=== PATIENT | female | born 1965 | race Caucasian/White ===

== ENCOUNTER 2019-11-04 09:11 | Outpatient (CLI) | payer MEDICARE, MEDICAID, SELFPAY ==
--- NOTE | ~2019-11-04 | MM_ITS ---
EXAMINATION: MM screening arpan BI w brandyn HISTORY: Screening TECHNIQUE: Craniocaudal and mediolateral oblique 3-D tomosynthesis images were obtained and synthetic 2-D images were generated. CAD analysis was submitted and interpreted. COMPARISON: Comparison to multiple prior studies sequentially, with oldest reviewed study dated 07/2015. BREAST PARENCHYMAL COMPOSITION: There are scattered areas of fibroglandular density. FINDINGS: There is no evidence of suspicious mass, calcification, or architectural distortion to sugg est malignancy in either breast. There has been no suspicious interval change. IMPRESSION: 1. No mammographic evidence of malignancy. 2. Recommend routine screening mammography in one year. BI-RADS Category 1: Negative Reviewed, dictated and finalized at location A.
== END 2019-11-04 09:12 | disposition home or self-care (01) ==
PROVIDERS: PCP Emergency Medicine; Visit Provider Emergency Medicine
DX: Z12.31 Encounter for screening mammogram for malignant neoplasm of breast (principal)
CPT/HCPCS: 77063; 77067

== ENCOUNTER 2019-12-03 09:04 | Outpatient (CLI) | payer MEDICARE, MEDICAID, SELFPAY ==
--- NOTE | ~2019-12-03 | CT_ITS ---
EXAMINATION: CT lung screening DATE: 12/03/2019 09:48 INDICATION: Personal history of tobacco dependence, prior smoker with 30 pack year history TECHNIQUE: Computed tomography (CT) of the chest was performed without intravenous contrast. The dose -length product (DLP) was 471.62 mGy-cm. Automated exposure control and iterative reconstruction tech [employer] were employed. COMPARISON: 04/05/2017 FINDINGS: There are multiple 1-2 mm nodules throughout the lungs with an upper lobe predominance. The re is a 3 mm nodule of the right lower lobe on image 85. The lungs are free of acute opacities. There is no pleural effusion or pneumothorax. No pathologically enlarged thoracic lymph nodes are identifi ed. The heart size is normal. Surgical changes in the stomach likely reflect gastric bypass. There is mild thoracic spondylosis. IMPRESSION: 1. Lung-RADS category 2: Benign appearance or behavior. Continue annual screening with noncontrast lo w-dose chest CT in 12 months. Reviewed, dictated and finalized at location B. IMPRESSION: 1. Lung-RADS category 2: Benign appearance or behavior. Continue annual screeni ng with noncontrast low-dose chest CT in 12 months.
[2019-12-03 10:56] LABS: Hematocrit 43.8 % (37.0-47.0); Hemoglobin 13.6 g/dL (12.0-15.0); Mean Corpuscular HGB Conc 31.1 g/dl (32-36); Mean Corpuscular Hemoglobin 27.9 pg (26-34); Mean Corpuscular Volume 89.8 fl (80-100); Mean Platelet Volume 11.7 fl (7.4-10.4); Platelet Count Result 309 k/mm3 (150-375); Red Blood Count 4.88 M/mm3 (4.2-5.4); White Blood Count 9.1 K/mm3 (4.5-10.0)
[2019-12-03 11:07] LABS: Add Urine Microscopic? YES; Appearance Urine Clear (Clear); Bacteria Urine 2+ /hpf; Bilirubin Urine Negative (Negative); Blood Urine Negative (Negative); Color Urine Yellow (Yellow); Glucose Urine UA Negative (Negative); Ketones Urine Negative (Negative); Leukocyte Esterase Ur Negative LEU/UL (NEGATIVE); Mucus Urine Rare /lpf; Nitrate Urine Positive (Negative); Protein Urine Negative (Negative); RBC Urine 0-2 /hpf (0-2); Specific Grav Ur 1.018 (1.001-1.035); Squamous Epithelial Cell Urine Many /hpf (Few); Urobilinogen Urine Negative mg/dL (<2.0); WBC Urine 0-3 /hpf (0-3)
[2019-12-03 11:10] LABS: Alanine Aminotransferase 16 U/L (4-35); Albumin Level 4.1 g/dL (3.5-5.1); Alkaline Phosphatase 78 U/L (38-126); Anion Gap 5 mmol/L (8-16); Aspartate Amino Transferase 25 U/L (14-36); Bilirubin,Total 0.8 mg/dL (0.2-1.3); Blood Urea Nitrogen 10 mg/dL (7-17); Carbon Dioxide 31 mmol/L (22-30); Chloride 103 mmol/L (98-107); Cholesterol 145 mg/dL (0-200); Estimated Glomerular Filt Rate > 60; Glucose 110 mg/dL (65-105); HDL Direct 30 mg/dL; Potassium 3.9 mmol/L (3.4-5.0); Sodium 139 mmol/L (137-145); Triglycerides 245 mg/dL (<150)
[2019-12-03 11:21] LABS: LDL Cholesterol Direct 69 mg/dL
[2019-12-03 11:27] LABS: Hemoglobin A1C 5.3 % (<5.7)
[2019-12-03 11:48] LABS: Free T4 Free Thyroxine 0.99 ng/mL (0.78-2.19)
[2019-12-03 12:00] LABS: Microalbumin Urine Random 29.7 mg/L (0-16.7)
[2019-12-03 12:10] LABS: Creatinine Urine 177.4 mg/dL; MALB Creatinine Ratio 16.7 mg/g (0-30)
== END 2019-12-03 09:05 | disposition home or self-care (01) ==
PROVIDERS: PCP Emergency Medicine; Visit Provider Nurse Practitioner Family
DX: Z12.2 Encounter for screening for malignant neoplasm of respiratory organs (principal); Z87.891 Personal history of nicotine dependence; M10.9 Gout, unspecified; E11.9 Type 2 diabetes mellitus without complications; I10 Essential (primary) hypertension
CPT/HCPCS: 36415; 80053; 80061; 81001; 82043; 83036; 84439; 84443; 85027; G0297

== ENCOUNTER 2020-05-02 10:05 | Outpatient (CLI) | payer MEDICARE, MEDICAID, SELFPAY ==
--- NOTE | ~2020-05-02 | XR_ITS ---
XR knee RT min 4V 05/02/2020 10:36 Indication: Right knee pain Procedure: 4 views right knee Comparison: 05/06/2015 Findings: There is severe osteoarthritis of the right knee. There is a moderate size joint effusion. No acute fracture or traumatic malalignment. No foreign bodies. Impression: 1: Severe osteoarthritis of the right knee. 2: Moderate joint effusion. Reviewed, dictated and finalized at location B. AN Impression: 1: Severe osteoarthritis of the right knee. 2: Moderate joint effusion.
--- NOTE | ~2020-05-02 | XR_ITS ---
EXAMINATION: XR hand LT min 3V INDICATION: Left hand pain TECHNIQUE: Three views of the left hand are obtained. COMPARISON: 12/19/2018 FINDINGS: Bone alignment is normal. There is no fracture. The soft tissues are unremarkable. There is mild osteoarthritis of the wrist. IMPRESSION: 1. No acute osseous abnormality. Reviewed, dictated and finalized at location A. 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
--- NOTE | ~2020-05-02 | XR_ITS ---
EXAMINATION: XR shoulder LT min 2V DATE: 05/02/2020 10:36 INDICATION: Left shoulder pain. TECHNIQUE: 4 views of left shoulder were obtained. COMPARISON: None. FINDINGS: Bone alignment is normal. No fracture. There is severe osteoarthritis of acromioclavicular joint and mild osteoarthritis of glenohumeral joint. IMPRESSION: 1. Polyarticular osteoarthritis. Reviewed, dictated and finalized at location A. 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
[2020-05-02 11:56] LABS: Anion Gap 5 mmol/L (8-16); Blood Urea Nitrogen 14 mg/dL (7-17); Calcium 9.2 mg/dL (8.4-10.2); Carbon Dioxide 33 mmol/L (22-30); Chloride 104 mmol/L (98-107); Cholesterol 142 mg/dL (0-200); Estimated Glomerular Filt Rate > 60; Glucose 99 mg/dL (65-105); HDL Direct 42 mg/dL; Potassium 4.2 mmol/L (3.4-5.0); Sodium 142 mmol/L (137-145); Triglycerides 155 mg/dL (<150)
[2020-05-02 12:07] LABS: LDL Cholesterol Direct 62 mg/dL
[2020-05-02 12:40] LABS: Free T4 Free Thyroxine 1.06 ng/mL (0.78-2.19)
== END 2020-05-02 10:06 | disposition home or self-care (01) ==
PROVIDERS: PCP Emergency Medicine; Visit Provider Emergency Medicine
DX: M25.542 Pain in joints of left hand (principal); M19.012 Primary osteoarthritis, left shoulder; M17.11 Unilateral primary osteoarthritis, right knee; M25.461 Effusion, right knee; E78.5 Hyperlipidemia, unspecified; I10 Essential (primary) hypertension
CPT/HCPCS: 36415; 73030; 73130; 73564; 80048; 80061; 84439; 84443

== ENCOUNTER 2020-07-15 17:07 | Emergency (ER) | payer MEDICARE, MEDICAID, SELFPAY ==
--- NOTE | ~2020-07-15 | CT_ITS ---
EXAMINATION: CTA chest PE protocol DATE: 07/15/2020 22:42 CDT INDICATION: Sharp chest pain. Evaluate for pulmonary embolism. TECHNIQUE: Computed tomographic angiography (CTA) of the chest was performed with 100 mL Omnipaque-35 0 intravenous contrast. The dose-length product was 871.81 mGy-cm. Maximum intensity projection 3D-re constructions of the aorta and other arteries were constructed by the technologist on a separate work station. Automated exposure control and iterative reconstruction technique were employed. COMPARISON: CT dated 12/03/2019 FINDINGS: The study is technically adequate without evidence for pulmonary embolism. Mild chronic rig ht hilar lymphadenopathy, likely reactive. No significant pleural or pericardial effusion. Heart size normal. Small hiatal hernia. There are gastric bypass surgical changes. There are no suspicious pulm onary nodules or masses. No pneumothorax. No evidence for focal pneumonia. Small sclerotic lesion in the sternum, most likely benign bone island. IMPRESSION: 1. No acute cardiopulmonary disease. No evidence for pulmonary embolism. Reviewed, dictated and finalized at location A.
--- NOTE | ~2020-07-15 | XR_ITS ---
XR chest 2V 07/15/2020 19:55 Indication: Chest pain Procedure: 2 view chest Comparison: Comparison to multiple prior studies sequentially, with oldest reviewed study dated 09/17. Findings: Heart size normal. There is right basilar atelectasis. No focal pneumonia, edema, pleural e ffusion or pneumothorax. No acute osseous abnormality. Impression: 1: Right basilar atelectasis. Reviewed, dictated and finalized at location A. Impression: 1: Right basilar atelectasis.
[2020-07-15 18:39] VITALS: BP 187/81; PULSE 65; RESP 18; TEMP 36.4; O2SAT 98
--- NOTE | 2020-07-15 18:39 | ECG_ITS ---
Measurements Intervals [place] Rate: 69 P: 62 [place]: 176 QRS: 29 QRSD: 113 T: 15 QT: 381 QTc: 409 Interpretive Statements SINUS RHYTHM WITH SINUS ARRHYTHMIA INTRAVENTRICULAR CONDUCTION DELAY BASELINE ARTIFACT- I, II, III, AVR, AVL, AVF, V1, V3-V4 BORDERLINE ECG Electronically Signed On 07-15-2020 20:28:37 CDT by Aayush Patel D.O.
[2020-07-15 18:58] LABS: Basophils Absolute Auto 0.1 K/mm3 (0.0-0.1); Basophils Percent Auto 0.5 % (0.2-1.2); Eosinophils Absolute Auto 0.3 K/mm3 (0-0.3); Eosinophils Percent Auto 3.1 % (0-4.4); Hematocrit 42.1 % (37.0-47.0); Hemoglobin 13.5 g/dL (12.0-15.0); Immature Granulocyte Absolute 0.03 K/mm3 (0.00-0.031); Immature Granulocyte Percent A 0.3 % (0-0.5); Lymphocytes Absolute Auto 2.63 K/mm3 (0.9-3.2); Lymphocytes Percent Auto 27.4 % (18.3-44.2); Mean Corpuscular HGB Conc 32.1 g/dl (32-36); Mean Corpuscular Hemoglobin 28.4 pg (26-34); Mean Corpuscular Volume 88.6 fl (80-100); Mean Platelet Volume 10.8 fl (7.4-10.4); Monocytes Absolute Auto 0.7 K/mm3 (0.1-0.6); Monocytes Percent Auto 7.6 % (2.6-8.5); Neutrophils Absolute Auto 5.9 K/mm3 (1.3-6.7); Neutrophils Percent Auto 61.1 % (45.5-73.1); Platelet Count Result 289 k/mm3 (150-375); Red Blood Count 4.75 M/mm3 (4.2-5.4); Red Cell Distribution Width 14.5 % (11.5-14.5); White Blood Count 9.6 K/mm3 (4.5-10.0)
[2020-07-15 19:07] LABS: Anion Gap 4 mmol/L (8-16); Blood Urea Nitrogen 18 mg/dL (7-17); Calcium 8.6 mg/dL (8.4-10.2); Carbon Dioxide 32 mmol/L (22-30); Chloride 106 mmol/L (98-107); Estimated CRCL calculation 102 ml/min; Estimated Glomerular Filt Rate > 60; Glucose 106 mg/dL (65-105); Potassium 3.8 mmol/L (3.4-5.0); Sodium 142 mmol/L (137-145)
[2020-07-15 19:08] LABS: Prothrombin Time 13.6 Seconds (11.1-14.7)
[2020-07-15 19:09] LABS: Partial Thromboplastin Time 27.8 SECONDS (22.3-36.8)
[2020-07-15 19:19] LABS: Troponin I < 0.012 ng/mL (0.000-0.034)
[2020-07-15 19:49] VITALS: BP 194/111; PULSE 68; RESP 20; O2SAT 100
[2020-07-15] MEDS: ASPIRIN 81 MG CHEWABLE TABLET 324 MG PO (20:08)
[2020-07-15 20:41] LABS: Alanine Aminotransferase 14 U/L (4-35); Albumin Level 3.8 g/dL (3.5-5.1); Alkaline Phosphatase 91 U/L (38-126); Aspartate Amino Transferase 23 U/L (14-36); Bilirubin,Total 0.7 mg/dL (0.2-1.3); Lipase 84 U/L (23-300)
[2020-07-15] MEDS: MORPHINE SULFATE (*CRX) 4 MG/ML INJ IV PUSH (22:04)
[2020-07-15 22:05] VITALS: BP 139/71; PULSE 74; RESP 16; O2SAT 98
[2020-07-15 22:19] LABS: Troponin I < 0.012 ng/mL (0.000-0.034)
[2020-07-15] MEDS: diphenhydrAMINE HCl INJ 50 MG/ML VIAL IV PUSH (22:25)
[2020-07-15 23:28] VITALS: BP 176/96; PULSE 70; RESP 22; O2SAT 99
--- NOTE | 2020-07-15 23:31 | ED.GENADULT ---
HPI - General Adult General Chief complaint: Chest Pain Stated complaint: left side pain, [facility], home Time Seen by Provider: 07/15/20 20:06 History of Present Illness HPI narrative: Patient 55-year-old female who presents the emergency department with chief complaint of back and chest pain. The patient reports no injuries reports she has pain is worse with movement and worse with inspiration. Patient states that she has not fallen reports that she feels little short of breath whenever she takes a deep breath due to the pain. Patient states that she has not had a fever or chills Related Data Home Medications Medication Instructions Recorded Confirmed levothyroxine 175 mcg capsule 175 mcg PO DAILY 11/11/19 05/05/20 lisinopril 10 mg tablet 10 mg PO DAILY 11/11/19 05/05/20 metoprolol tartrate 25 mg tablet 25 mg PO BID tablet 11/11/19 05/05/20 calcium carbonate [Caltrate 600] 600 mg PO BID 07/15/20 07/15/20 multivit with min-folic acid tablet PO BID 07/15/20 [Adult Multivitamin Gummies] [id number] 1 tablet PO DAILY 07/15/20 07/15/20 [Adult Multi plus Aurora-3] Allergies Allergy/AdvReac Type Severity Reaction Status Date / Time ceftriaxone Allergy Unknown Hives Verified 07/15/20 20:10 erythromycin base Allergy Unknown Hives Verified 07/15/20 20:10 CEFTRIAXONE SODIUM Allergy Unknown FACIAL Uncoded 07/15/20 20:10 SWELLING/HIVES Review of Systems Review of Systems: Narrative: A 10 system review of systems was completed on the patient and is negative except for what is stated in the HPI. Nursing and ancillary documentation was reviewed. [facility] Surgical History Surgical History H/O gastric bypass Family History Family History Father Hypertension Family history of diabetes mellitus in first degree relative Diabetes mellitus Mother Hypertension Family history of hypothyroidism Social History Social History Smoking status: Former smoker Second hand tobacco smoke exposure: Yes Smoking end date: 03/25/11 Alcohol intake: never Exam Narrative: Exam Narrative: GENERAL: Well-appearing, well-nourished, and in no acute distress. HEAD: Normocephalic, atraumatic. EYES: PERRLA and EOMI. ENT: Nares clear, no rhinorrhea or epistaxis. Mucous membranes moist. NECK: Supple. Back: There is tenderness to palpation in the paraspinous muscles on the left in the mid thoracic region CHEST: Clear to auscultation. No respiratory distress. Chest wall is tender to palpation on the left side HEART: Regular rate and rhythm. No murmur heard. Normal peripheral pulses. ABDOMEN: Soft, nontender, nondistended, normal active bowel sounds. EXTREMITIES: Normal range of motion. No edema. SKIN: Warm, dry, no rash. NEURO: No focal deficits. Alert and oriented x3. PSYCH: Normal mood and affect. Course Vital Signs Vital signs: Vital Signs Temperature 36.4 C L 07/15/20 18:39 Pulse Rate 65 07/15/20 18:39 Respiratory Rate 18 07/15/20 18:39 Blood Pressure 187/81 H 07/15/20 18:39 Pulse Oximetry 98 07/15/20 18:39 Temperature 36.4 C L 07/15/20 18:39 Pulse Rate 70 07/15/20 23:28 Respiratory Rate 22 H 07/15/20 23:28 Blood Pressure 176/96 H 07/15/20 23:28 Pulse Oximetry 99 07/15/20 23:28 Medical Decision Making Vital Signs Vital Signs: Vital Signs Temperature 36.4 C L 07/15/20 18:39 Pulse Rate 65 07/15/20 18:39 Respiratory Rate 18 07/15/20 18:39 Blood Pressure 187/81 H 07/15/20 18:39 Pulse Oximetry 98 07/15/20 18:39 Temperature 36.4 C L 07/15/20 18:39 Pulse Rate 70 07/15/20 23:28 Respiratory Rate 22 H 07/15/20 23:28 Blood Pressure 176/96 H 07/15/20 23:28 Pulse Oximetry 99 07/15/20 23:28 Lab Data Result diagrams: 07/15/20 18:50 04
[2020-07-16 01:03] VITALS: BP 169/82; PULSE 85; RESP 24; O2SAT 99
== END 2020-07-16 01:15 | disposition home or self-care (01) ==
PROVIDERS: Emergency Medicine; Emergency Provider Emergency Medicine; PCP Emergency Medicine
DX: R07.89 Other chest pain (principal); Z98.84 Bariatric surgery status; Z87.891 Personal history of nicotine dependence; I45.9 Conduction disorder, unspecified
CPT/HCPCS: 36415; 71046; 71275; 80048; 80076; 83690; 84484; 85025; 85610; 85730; 93005; 96374; 96375; 99284; A9270; J1200; J2270; Q9967